=== PATIENT | female | born 1960 | race Caucasian/White ===

== ENCOUNTER → 2021-05-12 | Outpatient (CLI) | payer OTHER ==
--- NOTE | 2021-05-12 16:49 | RAD ---
Exam performed: Renal sonogram and renal artery Doppler. Indication: Reduced renal function Comparison: None available. Technique: Real-time grayscale imaging of the kidneys is performed and images are obtained. In additi on color flow, duplex Doppler spectrum analysis of the renal arteries is also performed. Findings: Both kidneys are normal in size and echogenicity. The right kidney measures 10.1 cm whereas the left kidney measures 9.8 in length. There is no hydronephrosis or perinephric fluid collection. At the in terpolar right kidney there is an exophytic hypoechoic cystic lesion measuring 2.9 x 2.5 x 2.3 cm wit hout color Doppler blood flow. This is not truly anechoic however evaluation may be limited by habitu s. The bladder is relatively decompressed with a volume of 49 mL. Doppler interrogation of the renal arteries was performed as follows. Peak systolic velocity in the proximal right renal artery measures 128 cm/s whereas on the left measu res 95 cm/s Peak systolic velocity in the mid right renal artery measures 125 cm/s and the left measures 111 cm/s Distal right renal artery peak systolic velocity measures 89 cm/s whereas on the left measures 79 cm/ s. Peak systolic velocity in the aorta measures 120 cm/s. Renal artery to aortic ratio on the right measures 1.1 and on the left measures 0.9 (normal less than 3.5) Resistive index on the right measures 0.7 and the left measures 0.7 (normal 0.6-0.92) Impression: 1. Hypoechoic exophytic lesion at the interpolar right kidney measuring 2.9 cm. This may represent a cyst with limited visualization due to body habitus or cyst with proteinaceous debris. Renal mass is not excluded. Recommend contrast-enhanced MRI or CT of the kidneys for further evaluation. 2. No Doppler evidence of renal artery stenosis. Electronically signed by: Hieu Muse MD (05/12/2021 4:47 PM) [id number]
== END ==
LOC: US 09:23
PROVIDERS: ATTEND Family Medicine
DX: N28.89 Other specified disorders of kidney and ureter (principal); R94.4 Abnormal results of kidney function studies
CPT/HCPCS: 76770